=== PATIENT | female | born 1975 | race Caucasian/White ===

== ENCOUNTER 2018-03-20 14:48 | Outpatient (CLI) | payer OTHER | END 2018-03-20 14:49 | disposition home or self-care (01) | LOC: BICMAMMO 14:48 | PROVIDERS: ATTEND Nurse Practitioner Women's Health | DX: Z12.31 Encounter for screening mammogram for malignant neoplasm of breast (principal); N64.89 Other specified disorders of breast; Z85.43 Personal history of malignant neoplasm of ovary | CPT/HCPCS: 77063; 77067 ==

== ENCOUNTER 2018-03-27 13:33 | Outpatient (CLI) | payer OTHER | END 2018-03-27 13:34 | disposition home or self-care (01) | LOC: BICMAMMO 13:33 | PROVIDERS: ATTEND Nurse Practitioner Women's Health | DX: R92.2 Inconclusive mammogram (principal); Z85.43 Personal history of malignant neoplasm of ovary | CPT/HCPCS: G0279 ==

== ENCOUNTER 2018-07-07 13:20 | Emergency (ER) | payer OTHER ==
[2018-07-07 13:47] LABS: #Eosinphils 0.6 thou/uL (0.0-0.7); #Lymphocytes 3.2 thou/uL (1.20-3.40); #Monocytes 0.6 thou/uL (0.11-0.59); #Neutrophils 8.6 thou/uL (1.40-6.50); %Basophils 0.4 % (0.0-1.0); %Eosinophils 4.3 % (0.0-10.0); %Lymphocytes 24.6 % (21.0-51.0); %Monocytes 4.6 % (0.0-10.0); %Neutrophils 66.1 % (42.0-75.0); Hemoglobin 15.4 g/dL (12.0-16.0); Mean Corpuscular HGB CONC 34.9 g/dL (32.0-36.0); Mean Corpuscular Hemoglobin 32.2 pg (27.0-31.0); Mean Corpuscular Volume 92.1 fL (78.0-98.0); Mean Platelet Volume 6.4 fL (7.4-10.4); Platelet Count 310 thou/uL (130-400); RBC Distribution Width 12.6 % (11.5-14.5); Red Blood Cell (RBC) Count 4.78 mill/uL (4.20-5.40)
[2018-07-07] MEDS ORDERED: Nitroglycerin 2% Ointment 1 INCH/1 GM Packet ONE (14:01)
[2018-07-07] MEDS ORDERED: Aspirin 325 MG TAB ONE (14:01)
[2018-07-07 14:04] LABS: ALT (SGPT) 13 U/L (8-55); AST (SGOT) 22 U/L (5-34); Albumin 3.9 g/dL (3.5-5.0); Alkaline Phosphatase 66 U/L (40-150); Anion Gap 15 mmol/L (10-20); BUN (Urea Nitrogen) 13 mg/dL (7.0-18.7); Bilirubin, Total 0.4 mg/dL (0.2-1.2); Calc. Creatinine Clearance 0 mL/min (70-130); Calcium 9.4 mg/dL (7.8-10.44); Carbon Dioxide 22 mmol/L (22-29); Chloride 103 mmol/L (98-107); Estimated GFR-MDRD 85; Globulin 2.8 g/dL (2.4-3.5); Glucose 249 mg/dL (70-105); Lipase 52 U/L (8-78); Potassium 3.9 mmol/L (3.5-5.1); Protein, Total 6.7 g/dL (6.0-8.3); Sodium 136 mmol/L (136-145)
--- NOTE | 2018-07-07 14:30 | RAD ---
PORTABLE CHEST: Date: 07/07/18 HISTORY: Chest pain. FINDINGS: Heart size and mediastinum are within normal limits. The lungs are clear of infiltrative process. No bony findings. Bilateral breast implants are noted. IMPRESSION: No active intrathoracic disease. POS: [facility]
[2018-07-07] MEDS ORDERED: Acetaminophen 500 MG TAB ONE (16:46)
== END 2018-07-07 17:33 | disposition home or self-care (01) ==
LOC: SCSER 13:20
DX: R07.9 Chest pain, unspecified (principal); E11.9 Type 2 diabetes mellitus without complications; I10 Essential (primary) hypertension; F32.9 Major depressive disorder, single episode, unspecified; M06.9 Rheumatoid arthritis, unspecified; F41.9 Anxiety disorder, unspecified; E78.5 Hyperlipidemia, unspecified; Z79.899 Other long term (current) drug therapy
CPT/HCPCS: 36415; 71045; 80053; 83690; 84484; 85025; 85379; 93005; 94760

== ENCOUNTER 2018-07-18 15:26 | Outpatient (CLI) | payer OTHER ==
--- NOTE | 2018-07-18 17:45 | RAD ---
FOUR VIEWS OF THE LUMBOSACRAL SPINE: Comparison: None. History: Low back pain. Right sided sacroiliitis. Sciatica. FINDINGS: Four views of the lumbosacral spine shows grade I anterolisthesis of L5 on S1. There appear to be vazquez ateral L5 pars defects. Vertebral bodies demonstrate normal height. No significant osteophyte formati on is seen. IMPRESSION: Spondylolisthesis of L5 on S1 secondary to bilateral pars defects. POS: [facility]
== END 2018-07-18 15:27 | disposition home or self-care (01) ==
LOC: BICRAD 15:26
PROVIDERS: ATTEND Internal Medicine Rheumatology
DX: M46.1 Sacroiliitis, not elsewhere classified (principal); M54.31 Sciatica, right side; M43.17 Spondylolisthesis, lumbosacral region
CPT/HCPCS: 72110

== ENCOUNTER 2018-07-31 14:09 | Outpatient (CLI) | payer OTHER ==
--- NOTE | 2018-07-31 15:28 | RAD ---
LUMBAR SPINE SERIES THREE VIEWS: HISTORY: Spondylolisthesis. COMPARISON: 07/18/2018 FINDINGS: The vertebral bodies are normal in height. Disk narrowing is again noted at L5-S1 with bilateral par s defects and spondylolisthesis. Flexion and extension views show the spondylolisthesis to be approx imately 7 mm in extension and approximately 9 mm in flexion. IMPRESSION: Bilateral pars defects at L5-S1. The degree of spondylolisthesis appears to increase slightly in fle xion. POS: [facility]
== END 2018-07-31 14:10 | disposition home or self-care (01) ==
LOC: RAD 14:09
PROVIDERS: ATTEND Nurse Practitioner Family
DX: M43.16 Spondylolisthesis, lumbar region (principal)
CPT/HCPCS: 72100

== ENCOUNTER 2018-11-12 17:57 | Observation (INO) | payer OTHER ==
[2018-11-12 18:56] LABS: #Basophils 0.1 thou/uL (0.0-0.2); #Eosinphils 0.4 thou/uL (0.0-0.7); #Monocytes 0.7 thou/uL (0.11-0.59); #Neutrophils 8.6 thou/uL (1.40-6.50); %Basophils 0.8 % (0.0-1.0); %Eosinophils 3.4 % (0.0-10.0); %Lymphocytes 23.3 % (21.0-51.0); %Monocytes 5.6 % (0.0-10.0); %Neutrophils 66.9 % (42.0-75.0); Hemoglobin 15.6 g/dL (12.0-16.0); Mean Corpuscular HGB CONC 33.8 g/dL (32.0-36.0); Mean Corpuscular Hemoglobin 31.5 pg (27.0-31.0); Mean Corpuscular Volume 93.2 fL (78.0-98.0); Mean Platelet Volume 6.9 fL (7.4-10.4); Platelet Count 338 thou/uL (130-400); RBC Distribution Width 12.4 % (11.5-14.5); Red Blood Cell (RBC) Count 4.96 mill/uL (4.20-5.40); White Blood Cell (WBC) Count 12.8 thou/uL (4.8-10.8)
[2018-11-12 19:04] LABS: BHCG - Serum Negative (NEGATIVE); Pregs Control Bar Appear? YES (CONTROL BAR)
[2018-11-12 19:05] LABS: Pregs Control Background? CLEAR/WHITE (CLR/WHITE)
[2018-11-12 19:13] LABS: Acetaminophen Less than 6.0 mcg/mL (10.0-30.0); Alcohol Less than 10 mg/dL (Less than 10); CK (CPK) 60 U/L (29-168); Salicylate Less than 8.0 mg/dL (15.0-30.0)
[2018-11-12 19:15] LABS: ALT (SGPT) 21 U/L (8-55); AST (SGOT) 26 U/L (5-34); Albumin 4.1 g/dL (3.5-5.0); Alkaline Phosphatase 64 U/L (40-150); Anion Gap 16 mmol/L (10-20); BUN (Urea Nitrogen) 16 mg/dL (7.0-18.7); Bilirubin, Total 0.3 mg/dL (0.2-1.2); Calc. Creatinine Clearance 0 mL/min (70-130); Carbon Dioxide 24 mmol/L (22-29); Chloride 99 mmol/L (98-107); Estimated GFR-MDRD 79; Globulin 3.1 g/dL (2.4-3.5); Glucose 232 mg/dL (70-105); Potassium 3.8 mmol/L (3.5-5.1); Protein, Total 7.2 g/dL (6.0-8.3); Sodium 135 mmol/L (136-145)
--- NOTE | 2018-11-12 19:22 | CT ---
EXAM: CT brain without contrast HISTORY: Headache and difficulty speaking COMPARISON: None TECHNIQUE: Multiple contiguous axial images were obtained and a CT of the brain without contrast. FINDINGS: The brain is normal in morphology and attenuation without focal lesions or confluent areas of infarction. There is no evidence of hydrocephalus, intracranial hemorrhage, or extra-axial fluid collection. The calvarium and overlying soft tissues are unremarkable. The visualized paranasal sinuses and masto id air cells are well aerated. IMPRESSION: No evidence of acute intracranial abnormality
--- NOTE | 2018-11-12 19:22 | RAD ---
EXAM: Single view of the chest HISTORY: Heart fluttering and chest pain COMPARISON: 07/07/2018 FINDINGS: Single view of the chest shows a normal sized cardiomediastinal silhouette. There is no geraldo dence of consolidation, mass, or pleural effusion. The bones are unremarkable. IMPRESSION: No evidence of acute cardiopulmonary disease
[2018-11-12 19:53] LABS: Bilirubin Negative (Negative); Blood, Urine Negative (Negative); Clarity Clear (Clear); Glucose, Urine (Dipstick) 250 mg/dL (Negative); Leukocyte Negative (Negative); Nitrite Negative (Negative); Protein, Urine (Dipstick) Negative (Neg-Trace); Urobilinogen 0.2 mg/dL (0.2-1.0); pH, Urine 5.5 (5.0-9.0)
[2018-11-12] MEDS ORDERED: Aspirin Chewable 81 MG TAB ONE (19:54)
[2018-11-12 20:05] LABS: Amphetamine Not Detected (NotDetected); Barbiturates Screen Not Detected (NotDetected); Benzodiazepine Screen Detected (NotDetected); Cocaine Metabolite Screen Not Detected (NotDetected); Methadone Not Detected (NotDetected); Methamphetamine Not Detected (NotDetected); Opiate Screen Not Detected (NotDetected); Oxycodone Screen Not Detected (NotDetected); Phencyclidine (PCP) Not Detected (NotDetected); THC/Cannabinoid Screen Not Detected (NotDetected); Tricyclic Screen Not Detected (NotDetected)
[2018-11-12 20:06] LABS: Medtox Control Line Valid? VALID (VALID)
[2018-11-12] MEDS ORDERED: HYDROcodone/Acetaminophen 5/325 mg Tablet ONE (22:00)
[2018-11-12 22:03] LABS: Troponin I 0.024 ng/mL (< 0.028)
[2018-11-13 01:14] LABS: Troponin I Less than 0.010 ng/mL (< 0.028)
[2018-11-13 03:53] VITALS: BMI 37.2
[2018-11-13] MEDS ORDERED: Ondansetron ODT 4 MG TAB PO PRN (03:57)
[2018-11-13] MEDS ORDERED: Ondansetron PF 4 MG/2 ML Vial IVP PRN (03:57)
[2018-11-13] MEDS ORDERED: Dextrose 50% Abboject 50 ML SYRINGE SLOW IVP PRN (03:57)
[2018-11-13] MEDS ORDERED: Dextrose 5% in Water 1,000 ML IV PRN (03:57)
[2018-11-13] MEDS ORDERED: ALPRAZolam 0.5 MG TAB PO PRN (04:08)
[2018-11-13] MEDS ORDERED: Gabapentin 100 MG CAP PO PRN (05:30)
--- NOTE | 2018-11-13 07:41 | ULT ---
BILATERAL CAROTID DUPLEX ULTRASOUND: DATE: 11/13/18 HISTORY: TIA. TECHNIQUE: Duggan scale ultrasound with color flow and spectral Doppler imaging of the extracranial carotid artery systems performed. FINDINGS: There is a small amount of plaque formation in the right carotid bulb. The peak systolic velocity in the right ICA measures 70 cm/second with an end-diastolic velocity of 2 4 cm/second and a systolic ratio of 0.71. The peak systolic velocity in the left ICA measures 62 cm/second with an end-diastolic velocity of 32 cm/second and a systolic ratio of 0.59. Flow in both vertebral arteries remains antegrade. IMPRESSION: No evidence of hemodynamically significant stenosis. POS: [facility]
--- NOTE | 2018-11-13 08:04 | HP ---
PRIMARY CARE DOCTOR: LB Lund-Felipe CODE STATUS: Full code. TIME OF EVALUATION: 12 a.m. CHIEF COMPLAINT: Slurred speech. HISTORY OF PRESENT ILLNESS: This is a 43-year-old female patient with past medical history of her diabetes and hypertension, came to the hospital after having an episode of slurred speech associated with palpitation and facial drop. The patient's symptoms lasted for about 30 minutes with no clear triggers, no alleviating factor, reported as mild. The symptoms resolved by itself and not present at this point. REVIEW OF SYSTEMS: CONSTITUTIONAL: No fever, chills, or generalized weakness. RESPIRATORY: No cough, sputum production, or shortness of breath. CARDIOVASCULAR: The patient reported palpitation. GASTROINTESTINAL: No nausea. No vomiting, diarrhea, or abdominal pain. STRATEGY DIRECTOR: The patient reported slurred speech and also numbness in the left side of face associated with pain in the left side of the face. GENITOURINARY: No burning on urination. EXTREMITIES: No leg swelling. All other systems were reviewed and negative except for the findings mentioned above. PAST MEDICAL HISTORY: As mentioned in HPI. SURGICAL HISTORY: The patient has breast implants, uterine biopsy, head surgery. PSYCHIATRIC HISTORY: and depression. SOCIAL HISTORY: No alcohol, no drugs, no smoking history. KNOWN ALLERGIES: To erythromycin, penicillins, and sulfa. REPORTED MEDICATIONS: 1. Methotrexate. 2. Levaquin. PHYSICAL EXAMINATION: VITAL SIGNS: The patient has blood pressure 100/60 with heart rate of 87, respiratory rate was 18, oxygen saturation 97% on room air, temperature 97.9. GENERAL APPEARANCE: The patient is alert, oriented, not in acute distress. HEENT: Eyes; normal conjunctivae. Moist oral mucosa. Anicteric. No JVD. RESPIRATORY: Bilateral air entry. No rales. No wheezes. Symmetric expansion. CARDIOVASCULAR: Normal rate. Regular rhythm. No murmurs. No gallop. No edema. ABDOMEN: Soft. Normal bowel sounds. MUSCULOSKELETAL: Baseline range of motion and strength. SKIN: Warm, intact. No pallor. No rash. No redness. Capillary refill seems to be intact. NEURO: No evidence of any new focal weakness. Cranial nerves seems to be intact. PSYCH: The patient is in good mood. No anxiety. Optimal judgment. DIAGNOSTIC DATA: EKG was reviewed. Normal sinus rhythm, no significant pathological findings. The CT brain was done. The patient has no evidence of acute intracranial abnormalities. The chest x-ray was done. The patient has no evidence of acute cardiopulmonary disease. LABORATORY DATA: The labs were done. The patient has a white count of 12.8, hemoglobin 15.6, hematocrit 46.2, MCV 93.2, platelet count 338. Sodium 135, potassium 3.8, chloride 99, carbon dioxide 24, anion gap 16, BUN 16, creatinine 0.79, GFR 79, glucose 232, calcium 10. LFTs were negative. Troponin was negative x3. Urine was done and was negative except for glucosuria, Toxicology was done and was positive with benzodiazepines. ASSESSMENT AND PLAN: The patient will be placed in the hospital with following medical problems. 1. Possible transient ischemic attack. We will do stroke protocol. We will monitor results and treat accordingly. 2. Leukocytosis, white count 12.8. No clear etiology. We will monitor. No evidence of sepsis at this point. 3. The patient has hyponatremia, sodium 135, this is minimal. No need for any acute intervention. We will just monitor and treat accordingly. 4. Uncontrolled diabetes, blood sugar 232. Reconcile home medication, place the patient on sliding scale. 5. Hyperlipidemia. Low-cholesterol diet is advised, reconcile home medications. 6. History of fibromyalgia and rheumatoid arthritis. Reconcile home medications, adjust treatment as needed to control symptoms. 7. Deep vein thrombosis prophylaxis. Job ID: [id number]
[2018-11-13] MEDS: Dicyclomine 10 MG CAP PO SCH ×2 (08:55→15:05)
[2018-11-13] MEDS ORDERED: Aspirin 81 mg Enteric Coated Tablet PO SCH (09:00)
[2018-11-13] MEDS ORDERED: Baclofen 10 MG TAB PO SCH (09:00)
[2018-11-13] MEDS ORDERED: Escitalopram Oxalate 20 mg Tablet PO SCH (09:00)
[2018-11-13] MEDS ORDERED: HYDROcodone/Acetaminophen 5/325 mg Tablet PO SCH (09:00)
[2018-11-13] MEDS ORDERED: CeleCOXIB 100 MG CAP PO SCH (09:00)
[2018-11-13] MEDS ORDERED: Losartan 25 MG TAB PO SCH (09:00)
[2018-11-13] MEDS ORDERED: Cyclobenzaprine 10 MG TAB PO SCH (09:00)
[2018-11-13] MEDS ORDERED: Loratadine 10 MG TAB PO SCH (09:00)
[2018-11-13] MEDS ORDERED: Folic Acid 1 MG TAB PO SCH (09:00)
[2018-11-13] MEDS ORDERED: Multivitamin W/ Minerals 1 TAB PO SCH (09:00)
[2018-11-13] MEDS ORDERED: Enoxaparin Sodium 40 MG/0.4 ML SYRINGE SC SCH (09:00)
[2018-11-13] MEDS ORDERED: Leucovorin Calcium 5 MG TAB PO SCH (10:15)
--- NOTE | 2018-11-13 10:40 | PDOC.PN ---
- Subjective Encounter Start Date: 11/13/18 Encounter Start Time: 10:35 Subjective: Patient states she has mild numbness involving the left holiness. -: Denies any VEGA or pain at present. She feels her ability to focus has -: improved. Denies any vision disturbances. No dizziness. Reports having discomfort of the neck/occipital region, which has improved. States she first felt a fluttering in her chest lasting seconds x 3 episodes, followed by sudden severe pain on the left side of her neck/head 30 min later. She states her VEGA was too severe to come in to the ER, therefore she waited. Reports having trouble focusing and being disoriented. Denies any slurred speech. Last night reports having difficulty walking due to chronic lower back pain. Seeing neuro as an outpatient. Reports long standing numbness to right forearm. Seen by Dr. Obregon as an outpatient. Also following with Dr. Patel after previous admission with chest pain.States she had an echo done. No chest pain at present. Denies any sob. - Objective Resuscitation Status - Order Detail: 11/13/18 03:57 Resuscitation Status Routine Resuscitation Status: FULL: Full Resuscitation Vital Signs & Weight: Vital Signs (12 hours) Temp Pulse Resp BP BP Pulse Ox 11/13/18 07:53 98.3 F 95 14 140/73 94 L 11/13/18 04:12 124/77 11/13/18 03:46 97.9 F 87 18 100/60 97 11/12/18 23:25 99.0 F 90 14 107/73 96 Weight Weight 223 lb 12.8 oz I&O: 11/12/18 11/13/18 11/14/18 06:59 06:59 06:59 Intake Total 240 Output Total 1 Balance 239 Result Diagrams: 11/12/18 18:45 11/12/18 18:45 Additional Labs: Accuchecks 11/13/18 06:22 POC Glucose 242 H Phys Exam - Physical Examination Constitutional: NAD HEENT: PERRLA, moist MMs, sclera anicteric, TM's clear, oral pharynx no lesions minimal tenderness to left holiness. No scalp tenderness Neck: no nodes, supple, full ROM Respiratory: clear to auscultation bilateral Cardiovascular: RRR Gastrointestinal: soft, non-tender, no distention, positive bowel sounds Musculoskeletal: no edema, pulses present Neurological: non-focal, moves all 4 limbs reduced sensation involving right forearm, from wrist to elbow No tongue deviation, slight numbness to left holiness/cheek, CN intact Psychiatric: normal affect, A&O x 3 Skin: no rash, normal turgor Dx/Plan (1) Sudden onset of severe headache Code(s): R51 - HEADACHE Status: Acute Plan: Resolved. Mild numbness to left upper cheek/holiness. No significant tenderness on exam. Add-on ESR/CRP. S/p CT Brain and Carotid US: unremarkable. MRI brain pending. Will be seen by Neuro. (2) Hypertension Code(s): I10 - ESSENTIAL (PRIMARY) HYPERTENSION Status: Chronic Plan: Continue home meds. Monitor BP. (3) Diabetes Code(s): E11.9 - TYPE 2 DIABETES MELLITUS WITHOUT COMPLICATIONS Status: Chronic Plan: Continue home meds. Monitor glucose. ISS started. (4) Chronic back pain Code(s): M54.9 - DORSALGIA, UNSPECIFIED; G89.29 - OTHER CHRONIC PAIN Status: Chronic Qualifiers: Back pain location: low back pain Plan: Continue home meds. (5) Leukoaraiosis Code(s): I67.81 - ACUTE CEREBROVASCULAR INSUFFICIENCY Status: Acute (6) Leukocytosis Code(s): D72.829 - ELEVATED WHITE BLOOD CELL COUNT, UNSPECIFIED Status: Acute Plan: Repeat labs today, including lactic acid No signs of clinical infection at present Likely due to physical stress. Afebrile. - Plan cont current plan of care * .
--- NOTE | 2018-11-13 11:10 | MRI ---
MRI BRAIN WITHOUT IV CONTRAST: HISTORY: TIA. Headache. Difficulty speaking. COMPARISON: CT from 11/12/2018. FINDINGS: There is no focal mass or midline shift. No intraaxial or extraaxial hemorrhage. No evidence for an acute infarct. Expected flow voids are present. Sinuses and mastoids are clear. IMPRESSION: Unremarkable noncontrast brain MRI. POS: [facility]
[2018-11-13 11:15] LABS: #Basophils 0.1 thou/uL (0.0-0.2); #Eosinphils 0.4 thou/uL (0.0-0.7); #Lymphocytes 2.2 thou/uL (1.20-3.40); #Monocytes 0.6 thou/uL (0.11-0.59); #Neutrophils 8.6 thou/uL (1.40-6.50); %Basophils 0.7 % (0.0-1.0); %Eosinophils 3.1 % (0.0-10.0); %Lymphocytes 18.9 % (21.0-51.0); %Monocytes 4.8 % (0.0-10.0); %Neutrophils 72.6 % (42.0-75.0); Mean Corpuscular HGB CONC 34.8 g/dL (32.0-36.0); Mean Corpuscular Hemoglobin 32.6 pg (27.0-31.0); Mean Corpuscular Volume 93.5 fL (78.0-98.0); Mean Platelet Volume 6.8 fL (7.4-10.4); Platelet Count 324 thou/uL (130-400); RBC Distribution Width 12.2 % (11.5-14.5); Red Blood Cell (RBC) Count 4.59 mill/uL (4.20-5.40); White Blood Cell (WBC) Count 11.8 thou/uL (4.8-10.8)
[2018-11-13] MEDS ORDERED: HumaLOG 300 UNITS/3 ML VIAL SC PRN (11:20)
[2018-11-13 11:38] LABS: Anion Gap 15 mmol/L (10-20); BUN (Urea Nitrogen) 17 mg/dL (7.0-18.7); CRP (Inflammatory) 0.73 mg/dL (= or < 0.5); Calc. Creatinine Clearance 146 mL/min (70-130); Calcium 9.6 mg/dL (7.8-10.44); Carbon Dioxide 26 mmol/L (22-29); Chloride 100 mmol/L (98-107); Estimated GFR-MDRD 80; Glucose 238 mg/dL (70-105); Potassium 3.9 mmol/L (3.5-5.1); Sodium 137 mmol/L (136-145)
[2018-11-13] MEDS: HumaLOG 300 UNITS/3 ML VIAL SC PRN ×2 (12:34→17:04)
[2018-11-13 16:15] VITALS: BP 113/62; TEMP 97.9
[2018-11-13] MEDS ORDERED: Atorvastatin Calcium 10 MG TAB PO SCH (21:00)
--- NOTE | 2018-11-13 22:12 | CON ---
DATE OF CONSULTATION: 11/13/2018 CONSULTING PHYSICIAN: Hospitalist Service. IMPRESSION: Migraine aura. PLAN: The patient can be discharged home. HISTORY OF PRESENT ILLNESS: Ms. Trevizo is a 43-year-old white female with a known history of diabetes, hypertension, and migraine. She presented to the hospital with a crawling sensation on the left side of her face, which evolved into more of a numbness and tingling. She had a pressure-type headache associated with it. It lasted for several hours. She had an MRI of the brain, which was normal. Carotid ultrasound was also normal. Her symptoms have passed. PAST MEDICAL HISTORY: As listed. ALLERGIES: ERYTHROMYCIN, PENICILLIN AND SULFA. MEDICATIONS: List reviewed. SOCIAL HISTORY: No tobacco or alcohol. FAMILY HISTORY: Noncontributory. REVIEW OF SYSTEMS: 10 system review of systems is otherwise negative. PHYSICAL EXAMINATION: GENERAL: She is overweight, middle-aged woman, in no acute distress. VITAL SIGNS: Blood pressure 140/73, pulse 95, respirations 14, and temperature 98.3. HEENT: Pupils equal and reactive. Conjunctivae clear. Oropharynx clear. NECK: Supple. EXTREMITIES: No cyanosis or edema. NEUROLOGIC: She is alert and appropriate. Her speech is fluent and clear. Her exam is nonfocal. SUMMARY: A 43-year-old woman with some transient tingling and head pressure that appeared to be benign and most likely secondary to a migraine aura. She will continue a baby aspirin daily. I will see her in the office for followup. Job ID: [id number]
--- NOTE | 2018-11-14 15:13 | DIS ---
DATE OF ADMISSION: 11/12/2018 DATE OF DISCHARGE: 11/13/2018 This is JACQUELINE Hogan dictating a report for Teresa Stovall MD. CONSULT PHYSICIAN: Humphrey Obregon MD, Neurology. DISCHARGE DIAGNOSES: 1. Migraine aura. 2. Uncontrolled diabetes. 3. Hyperlipidemia. 4. Fibromyalgia. 5. Rheumatoid arthritis. HOSPITAL COURSE: Ms. Trevizo is a 43-year-old woman, who presented with an episode of slurred speech and facial droop lasting 30 minutes. The patient has had no further episodes since then. She described a crawling sensation on the left side of her face and a headache associated with it. It lasted for several hours. The patient underwent investigations including carotid Dopplers, which showed no hemodynamically significant stenosis. She had an MRI of the brain, which was unremarkable. The patient was evaluated by Dr. Obregon of Neurology, who felt she had experienced a migraine aura. She was discharged on a baby aspirin with advice to follow up with him as an outpatient. REVIEW OF SYSTEMS: The patient states she has had no further headaches. No vision changes or further speech disturbances. No nausea or vomiting. No abdominal pain or cramping. No chest pain, palpitations, or shortness of breath. No urinary symptoms. No bowel changes. All other review of systems are negative. PHYSICAL EXAMINATION: GENERAL: The patient appears well developed, well nourished, in no acute distress. VITAL SIGNS: Temperature 97.9, pulse 90, respirations 16, O2 sats 94% on room air, and blood pressure 113/62. HEENT: Normocephalic and atraumatic. Pupils are equal, round, and reactive to light. Sclerae are without icterus. Oropharynx is clear. NECK: Supple. LUNGS: Clear to auscultation bilaterally. CARDIAC: Regular rate and rhythm. ABDOMEN: Soft, nontender, and nondistended. Normoactive bowel sounds present. No renal angle tenderness. EXTREMITIES: Without lower leg swelling or edema. Power 5/5 in all limbs with sensation intact. SKIN: Without rash or jaundice. NEUROLOGIC: Alert and oriented x3. No neuro deficits. LABORATORY DATA: White blood count 11.8, hemoglobin 15, hematocrit 43, platelets 324. Sodium 137, potassium 3.9, chloride 100, BUN 17, creatinine 0.78, GFR 80, glucose 238. Lactic acid 2.0. Troponin negative x3. CRP 0.73. Urinalysis notable for glucose and ketones, otherwise unremarkable. Urine drug screen is positive for benzodiazepines, otherwise unremarkable. Plasma alcohol less than 10. Serum negative. IMAGING DATA: 1. Brain CT, 11/12/2018. No evidence of acute intracranial abnormality. 2. Chest x-ray, 11/12/2018. No evidence of acute cardiopulmonary process. 3. Carotid Doppler, 11/13/2018. No evidence of hemodynamically significant stenosis. Small amount of plaque formation in the right carotid bulb. 4. Brain MRI, 11/13/2018. Unremarkable. CONDITION: Stable at discharge. ACTIVITY: As tolerated. DIET: Heart healthy/diabetic diet. DISCHARGE MEDICATIONS: The patient was advised to continue baby aspirin daily. Otherwise, advised to resume home medications. The patient is on simvastatin 20 mg p.o. at bedtime. FOLLOWUP: The patient was advised to follow up with her primary care physician within 1 week, will follow up with Dr. Obregon as recommended. DISPOSITION: The patient will be medically cleared for discharge home on 11/13/2018. The patient's case was discussed with Dr. Stovall, who agrees with plan of care as described above. Job ID: [id number]
[2018-11-19] MEDS ORDERED: Leucovorin Calcium 5 MG TAB PO SCH ×2 (09:00)
== END 2018-11-13 18:14 | disposition home or self-care (01) ==
LOC: SCSER 17:57 → 2SE 20:00
PROVIDERS: ADMIT Hospitalist; ATTEND Hospitalist
DX: G43.109 Migraine with aura, not intractable, without status migrainosus (principal); E11.9 Type 2 diabetes mellitus without complications; E78.5 Hyperlipidemia, unspecified; M79.7 Fibromyalgia; M06.9 Rheumatoid arthritis, unspecified; I67.81 Acute cerebrovascular insufficiency; R29.810 Facial weakness; R47.81 Slurred speech; D72.829 Elevated white blood cell count, unspecified; E87.1 Hypo-osmolality and hyponatremia; I10 Essential (primary) hypertension; M54.5 Low back pain; G89.29 Other chronic pain; F41.9 Anxiety disorder, unspecified; F32.9 Major depressive disorder, single episode, unspecified; Z98.890 Other specified postprocedural states; Z88.0 Allergy status to penicillin; Z88.2 Allergy status to sulfonamides; Z88.1 Allergy status to other antibiotic agents; Z79.82 Long term (current) use of aspirin; Z79.84 Long term (current) use of oral hypoglycemic drugs; Z79.891 Long term (current) use of opiate analgesic; Z79.899 Other long term (current) drug therapy
CPT/HCPCS: 36415; 36416; 70450; 70551; 71045; 80048; 80053; 80306; 80307; 81003; 82550; 83605; 84484; 84703; 85025; 85652; 86140; 87086; 90471; 90732; 93306; 93880; 96372; G0009; G0378; J1650

== ENCOUNTER 2019-01-15 13:41 | Outpatient (CLI) | payer OTHER ==
[2019-01-15 14:45] LABS: Hemoglobin 16.1 g/dL (12.0-16.0); Mean Corpuscular HGB CONC 34.1 g/dL (32.0-36.0); Mean Corpuscular Hemoglobin 31.7 pg (27.0-31.0); Mean Platelet Volume 7.1 fL (7.4-10.4); Platelet Count 364 thou/uL (130-400); RBC Distribution Width 11.7 % (11.5-14.5); Red Blood Cell (RBC) Count 5.09 mill/uL (4.20-5.40); White Blood Cell (WBC) Count 13.3 thou/uL (4.8-10.8)
[2019-01-15 15:09] LABS: Anion Gap 15 mmol/L (10-20); BUN (Urea Nitrogen) 16 mg/dL (7.0-18.7); Calc. Creatinine Clearance 0 mL/min (70-130); Calcium 10.9 mg/dL (7.8-10.44); Carbon Dioxide 21 mmol/L (22-29); Chloride 104 mmol/L (98-107); Estimated GFR-MDRD 74; Glucose 401 mg/dL (70-105); Potassium 4.7 mmol/L (3.5-5.1); Sodium 135 mmol/L (136-145)
== END 2019-01-15 13:42 | disposition home or self-care (01) ==
LOC: LABBT 13:41
PROVIDERS: ATTEND Neurological Surgery
DX: Z01.818 Encounter for other preprocedural examination (principal); M43.16 Spondylolisthesis, lumbar region
CPT/HCPCS: 80048; 85027; 93005; 93010

== ENCOUNTER 2019-01-20 06:55 | Observation (INO) | payer OTHER ==
[2019-01-15 13:55] VITALS: BMI 38.2
[2019-01-20] MEDS ORDERED: Clindamycin/D5W 900 mg/50 ml Premix Bag ONE (08:12)
[2019-01-20] MEDS ORDERED: Levofloxacin 500 mg/D5W 100 ml Premix Bag ONE (08:12)
[2019-01-20] MEDS ORDERED: Midazolam HCl 2 mg/2 ml Vial ONE ×2 (08:40→08:52)
[2019-01-20] MEDS ORDERED: Sodium Chloride 0.9% 10 ML ONE (09:05)
[2019-01-20] MEDS ORDERED: Scopolamine 1.5 mg/72 hour Patch ONE (09:14)
[2019-01-20] MEDS ORDERED: Fentanyl 100 MCG/2 ML VIAL ONE ×5 (09:21→13:02)
[2019-01-20] MEDS ORDERED: SUGAMMADEX SODIUM 200 MG/2 ML VIAL ONE (10:42)
--- NOTE | 2019-01-20 11:01 | OP ---
DATE OF PROCEDURE: 01/20/2019 SPECIALTY FINISHING UTILITY PERSON: Bita Ackerman PA-C PROCEDURES PERFORMED: L5-S1 posterolateral arthrodesis, pedicle screw instrumentation, demineralized bone matrix, local morselized autograft, bilateral L5-S1 foraminotomy. DESCRIPTION OF PROCEDURE: The patient was brought to the operating room and intubated, rolled in prone position on gel-filled chest rolls. An incision was made exposing L5 and S1 bilaterally and the level was confirmed by x-ray. We then performed modest bilateral L5-S1 facetectomy by first decompression and foraminotomy. Next, we placed pedicle screws at L5 bilaterally and S1 bilaterally using lateral fluoroscopic guidance and the position was confirmed by x-ray. A lonnie was secured between the screws, connected by nuts, which were final tightened. The wound was then extensively irrigated and MAC hemostasis was secured. A combination of demineralized bone matrix and local morselized autograft was laid over the lamina and posterolateral surfaces for the purpose of arthrodesis. Vancomycin powder was applied and the wound was then closed in anatomic layers. Job ID: [id number]
[2019-01-20] MEDS ORDERED: Morphine 4 MG/ML VIAL ONE (11:18)
[2019-01-20] MEDS ORDERED: Morphine 2 MG/ML SYRINGE ONE (11:34)
[2019-01-20] MEDS ORDERED: HYDROmorphone 2 MG/ML VIAL ONE ×2 (11:39→13:22)
[2019-01-20] MEDS ORDERED: PHENYLEPHRINE-NS 100 MCG/ML 10 ML SYRINGE ONE (12:49)
[2019-01-20] MEDS ORDERED: Glycopyrrolate 0.2 MG/ML 5 ML SYRINGE ONE (12:49)
[2019-01-20] MEDS ORDERED: PROPOFOL 200 MG/20 ML VIAL ONE (12:49)
[2019-01-20] MEDS ORDERED: Lidocaine 1% PF 5 ML VIAL ONE (12:49)
[2019-01-20] MEDS ORDERED: Rocuronium Bromide 10 MG/ML (10ML VIAL) ONE (12:49)
[2019-01-20] MEDS ORDERED: ePHEDrine 50 MG/ML VIAL ONE (12:49)
[2019-01-20] MEDS ORDERED: Dexamethasone 20 MG/5 ML VIAL ONE (12:49)
[2019-01-20] MEDS ORDERED: Ondansetron PF 4 MG/2 ML Vial ONE (12:49)
[2019-01-20] MEDS ORDERED: Ketorolac Tromethamine 30 MG/ML VIAL ONE (13:22)
[2019-01-20] MEDS ORDERED: Mag-Al 1200 mg/1200 mg/30 ML UDCUP PO PRN (14:41)
[2019-01-20] MEDS ORDERED: Ondansetron PF 4 MG/2 ML Vial IM PRN (14:41)
[2019-01-20] MEDS ORDERED: Milk Of Magnesia 30 ML UDCUP PO PRN (14:41)
[2019-01-20] MEDS ORDERED: Promethazine HCl 12.5 MG SUPP PR PRN (14:41)
[2019-01-20] MEDS ORDERED: HYDROcodone/Acetaminophen 10/325 mg Tablet PO PRN (14:41)
[2019-01-20] MEDS ORDERED: traMADol HCl 50 MG TAB PO PRN ×2 (14:41)
[2019-01-20] MEDS ORDERED: Morphine 4 MG/ML VIAL SLOW IVP PRN (14:41)
[2019-01-20] MEDS ORDERED: diphenhydrAMINE 25 MG CAP PO PRN (14:41)
[2019-01-20] MEDS ORDERED: Bisacodyl 10 MG SUPP PR PRN (14:41)
[2019-01-20] MEDS ORDERED: tiZANidine HCl 4 MG TAB PO PRN (14:41)
[2019-01-20] MEDS ORDERED: diphenhydrAMINE 50 MG/ML VIAL IVP PRN (14:41)
[2019-01-20] MEDS ORDERED: Promethazine HCl 25 MG/ML VIAL IM PRN (14:41)
[2019-01-20] MEDS ORDERED: Promethazine 25 MG TAB PO PRN (14:41)
[2019-01-20] MEDS: Sodium Chloride 0.9% 1,000 ML IV SCH (15:35)
[2019-01-20] MEDS: HYDROcodone/Acetaminophen 10/325 mg Tablet PO PRN ×2 (17:23→21:49)
[2019-01-20] MEDS ORDERED: SUMAtriptan Succinate 25 MG TAB PO PRN (17:46)
[2019-01-20] MEDS ORDERED: Morphine 2 MG/ML SYRINGE SLOW IVP PRN (18:44)
[2019-01-20] MEDS ORDERED: Atorvastatin Calcium 10 MG TAB PO SCH (21:00)
[2019-01-20] MEDS ORDERED: Amitriptyline HCl 10 MG TAB PO SCH (21:00)
[2019-01-20] MEDS ORDERED: Losartan 25 MG TAB PO SCH ×2 (21:00)
[2019-01-20] MEDS ORDERED: Insulin Glargine 20 UNITS in Pre-Filled Syringe 1 EACH SC SCH (21:00)
[2019-01-20] MEDS: Gabapentin 300 MG CAP PO SCH (21:42)
[2019-01-20] MEDS: Dicyclomine 10 MG CAP PO SCH (21:42)
[2019-01-20] MEDS: Baclofen 10 MG TAB PO SCH (21:43)
[2019-01-21] MEDS: HYDROcodone/Acetaminophen 10/325 mg Tablet PO PRN ×2 (02:37→08:08)
[2019-01-21] MEDS: Sodium Chloride 0.9% 1,000 ML IV SCH (06:28)
[2019-01-21] MEDS ORDERED: glipiZIDE 10 MG TAB PO SCH (07:30)
[2019-01-21] MEDS ORDERED: metFORMIN 500 MG TAB PO SCH (08:00)
[2019-01-21] MEDS ORDERED: Stress 600 With Zinc 1 TAB PO SCH (09:00)
[2019-01-21] MEDS ORDERED: Loratadine 10 MG TAB PO SCH (09:00)
[2019-01-21] MEDS ORDERED: Escitalopram Oxalate 20 mg Tablet PO SCH (09:00)
[2019-01-21] MEDS ORDERED: Multivit, Therapeutic 1 TAB PO SCH (09:00)
[2019-01-21] MEDS ORDERED: Folic Acid 1 MG TAB PO SCH (09:00)
[2019-01-21] MEDS: Dicyclomine 10 MG CAP PO SCH (09:10)
[2019-01-21] MEDS: Gabapentin 300 MG CAP PO SCH (09:10)
[2019-01-21] MEDS: Baclofen 10 MG TAB PO SCH (09:11)
--- NOTE | 2019-01-21 10:01 | DIS ---
DATE OF ADMISSION: 01/20/2019 DATE OF DISCHARGE: 01/21/2019 The patient is a 43-year-old female known to us for recent evaluation of progressive back pain and found to have L5-S1 spondylolisthesis and bilateral foraminal stenosis, who underwent L5-S1 decompression and fusion on 01/20/2019. Following the surgery, she was transitioned to the floor. Her pain has been well controlled overnight with p.o. Dawson, she is tolerating a regular diet, and she is voiding appropriately. She has been ambulatory short distances throughout her room. Her incision is clean, dry, and intact. We will plan to dismiss the patient to home later today. I have discussed home care precautions. We will follow up with her in 2 weeks. Job ID: [id number]
[2019-01-21 11:26] VITALS: BP 93/53; TEMP 98.7
== END 2019-01-21 11:35 | disposition home or self-care (01) ==
LOC: SDC 06:55 → 3SE 08:00 → EDSTATUS 13:30
PROVIDERS: ADMIT Neurological Surgery; ATTEND Neurological Surgery
PROC: 0SG30AJ Fusion of Lumbosacral Joint with Interbody Fusion Device, Posterior Approach, Anterior Column, Open Approach (ICD-10-PCS; principal; 2019-01-21)
DX: M43.17 Spondylolisthesis, lumbosacral region (principal); M48.07 Spinal stenosis, lumbosacral region; E11.9 Type 2 diabetes mellitus without complications; I10 Essential (primary) hypertension; M06.9 Rheumatoid arthritis, unspecified; Z88.0 Allergy status to penicillin; Z88.1 Allergy status to other antibiotic agents; Z88.2 Allergy status to sulfonamides; Z79.4 Long term (current) use of insulin; Z79.82 Long term (current) use of aspirin; Z79.899 Other long term (current) drug therapy
CPT/HCPCS: 36416; 76000; 96360; 96361; C1713; C1768; G0378; J0131; J1100; J1170; J1815; J1885; J1956; J2001; J2250; J2270; J2405; J2704; J3010; J3370; J3490

== ENCOUNTER 2019-02-04 10:48 | Outpatient (CLI) | payer OTHER ==
--- NOTE | 2019-02-04 11:27 | RAD ---
LUMBAR SPINE 2 VIEWS: DATE: 02/04/2019. COMPARISON: 07/31/2018. HISTORY: Back pain, weakness, spondylolisthesis. FINDINGS: There is an IUD overlying the pelvis. Bilateral L5 and S1 pedicle screws are present with vertically oriented interlocking rods. Bilateral L5 pars defects are present. There is anterolisthesis measuring 8 mm at the lumbosacral junction, similar when compared to prior i maging. No acute osseous abnormal IMPRESSION: Fusion hardware at the lumbosacral junction as detailed above. Transcribed Date/Time: 02/04/2019 1:47 PM
== END 2019-02-04 10:49 | disposition home or self-care (01) ==
LOC: TBSIIMAG 10:48
PROVIDERS: ATTEND Neurological Surgery
DX: M43.16 Spondylolisthesis, lumbar region (principal); Z98.1 Arthrodesis status
CPT/HCPCS: 72100

== ENCOUNTER 2019-03-25 13:14 | Outpatient (CLI) | payer OTHER ==
--- NOTE | 2019-03-25 13:38 | RAD ---
LUMBAR SPINE 2 VIEWS: HISTORY: Spondylolisthesis of the lumbar region. Back pain. COMPARISON: 07/31/2018 exam. FINDINGS: Pedicle screws again noted in place at L5-S1. Grade I to II spondylolisthesis at L5-S1 again noted w ith loss of disk space. The posterior spondylolysis is again noted. The anterolisthesis does not ap pear significantly changed from 02/04/2019 exam. Disk spaces above L5 are maintained. Alignment above L5 is normally preserved. IMPRESSION: Anterolisthesis of L5-S1 does not appear significantly changed from 02/04/2019. POS: [facility]
== END 2019-03-25 13:15 | disposition home or self-care (01) ==
LOC: BICRAD 13:14
PROVIDERS: ATTEND Neurological Surgery
DX: M43.16 Spondylolisthesis, lumbar region (principal); M43.17 Spondylolisthesis, lumbosacral region
CPT/HCPCS: 72100